=== PATIENT | male | born 1955 | race Caucasian/White ===

== ENCOUNTER → 2016-07-20 | Day surgery (SDC) | payer OTHER ==
--- NOTE | 2016-07-19 11:14 | MH ---
cc: Colt IGNACIO M.D. DATE OF ADMISSION: 07/20/2016 ADMISSION DIAGNOSIS Torn medial meniscus left knee now for arthroscopy left knee. ADMISSION HISTORY AND PHYSICAL This pleasant 61-year-old male is being admitted today for arthroscopy left knee due to a torn medial meniscus. PAST MEDICAL AND SURGICAL HISTORY Other past history: 1. The patient has a history of hypertension and for which he takes atenolol. 2. Sleep apnea. 3. He has previous surgery for partial right knee arthroplasty. REVIEW OF SYSTEMS Noncontributory. FAMILY HISTORY Noncontributory. SOCIAL HISTORY He does not smoke. Drinks occasionally. ALLERGIES NO KNOWN ALLERGIES. PHYSICAL EXAMINATION GENERAL: We find a 61-year-old male well-developed, well-nourished, alert and oriented times three, complaining of pain in his left knee. VITAL SIGNS: Blood pressure 116/72, pulse 73 and regular, respirations 16, temperature 98.2, pulse oximetry 93% on room air. HEENT: Eyes PERRL, EOMI. Ears, nose, mouth clear. NECK: Supple. LUNGS: Clear. HEART: Regular rate. ABDOMEN: Soft. Positive bowel sounds, nontender. EXTREMITIES: Reveal his left knee to be tender to palpation. He is neurovascularly intact to his toes. IMAGING MRI did reveal a torn medial meniscus. PLAN Admission for arthroscopy left knee today. The patient given prescription for postoperative pain control in the office. JMD BRUNO Lerma/KK /4:29 PM /11:03 AM
[~2016-07-20] VITALS: Ht 185.4 cm; Wt 107.3 kg
[~2016-07-20] MED LIST: *morphine SULFATE 8 MG/ML PERIprocedure ONLY ONE; ACETAMINOPHEN 1000 MG/100 ML VIAL IV ONE; APREPITANT 40 MG CAP ONE; ATEN50TA PO; BUPIVACAINE HCL PF 0.25% 30 ML VIAL ONE; CHLORHEXIDINE GLUCONATE 2 % 1 PACK (2 CLOTHS) TOPICAL PRN; CHLORHEXIDINE GLUCONATE 4% SOLN 120 ML BTL TOPICAL SCH; DO NOT ADM ANY ANTICOAGULANT DRUGS PRN; FAMOTIDINE 20 MG/2 ML VIAL ONE; INSULIN HUMAN REGULAR 1,000 UNITS/10 ML VIAL SQ PRN; LACTATED RINGER'S 1000 ML IV PRN; METOPROLOL TARTRATE 25 MG TAB PO PRN; MIDAZOLAM HCL 2 MG/2 ML VIAL ONE; ONDANSETRON HCL 4 MG/2 ML VIAL IV PUSH ONE; POVIDONE IODINE 5% (ANTISEPSIS KIT) 4 APPLICATIONS EACH NARE PRN; PROPOFOL 200 MG/20 ML AMP IV ONE; SODIUM CHLORID 0.9% 500 ML IV PRN; ceFAZolin 2 GM PREMIX 50 ML IV SCH; fentaNYL CITRATE 250 MCG/5 ML AMP ONE
[2016-07-20 06:38] VITALS: BP 121/72; PULSE 52; RESP 18; TEMP 97.5; O2SAT 98
[2016-07-20 07:01] LABS: AUTOMATED NEUTROPHIL # 5.1 TH/MM3 (1.8-7.7); BASOPHIL % 0.4 % (0.0-2.0); EOSINOPHIL # 0.2 TH/MM3 (0-0.4); EOSINOPHIL % 2.1 % (0.0-4.0); HEMATOCRIT 42.9 % (39.0-51.0); HEMO FLAGS DIFF FINAL; LYMPH % 24.3 % (9.0-44.0); MEAN CELL VOLUME 83.3 FL (80.0-100.0); MEAN CORPUSCULAR HEMOGLOBIN 27.8 PG (27.0-34.0); MEAN CORPUSCULAR HGB CONC 33.4 % (32.0-36.0); MONO % 10.9 % (0.0-8.0); NEUT % 62.3 % (16.0-70.0); PLATELET COUNT 140 TH/MM3 (150-450); RED BLOOD COUNT 5.15 MIL/MM3 (4.50-5.90); RED CELL DISTRIBUTION WIDTH 14.5 % (11.6-17.2); WHITE BLOOD COUNT 8.1 TH/MM3 (4.0-11.0)
[2016-07-20 07:10] LABS: APTT (PATIENT) 27.8 SEC (24.3-30.1)
[2016-07-20 07:16] LABS: ANION GAP 10 MEQ/L (5-15); AST (GOT) 17 U/L (15-37); BICARBONATE 26.2 MEQ/L (21.0-32.0); BLOOD UREA NITROGEN 20 MG/DL (7-18); CHLORIDE 106 MEQ/L (98-107); GLOMERULAR FILTRATION RATE 75 ML/MIN (>89); POTASSIUM 3.9 MEQ/L (3.5-5.1); SODIUM (NA) 142 MEQ/L (136-145)
[2016-07-20 07:19] LABS: ALKALINE PHOSPHATASE 43 U/L (45-117); ALT (GPT) 37 U/L (12-78); TOTAL BILIRUBIN ADULT 0.3 MG/DL (0.2-1.0)
[2016-07-20 07:29] LABS: BLOOD, URINE NEG (NEG); GLUCOSE,URINE NEG (NEG); HYALINE CAST, URINE 1 /lpf (RARE); KETONE, URINE NEG (NEG); MUCUS URINE FEW /lpf (OCC); NITRITE,URINE NEG (NEG); SQUAMOUS EPITHELIAL CELL URINE <1 /hpf (0-5); URINE COLOR YELLOW (YELLW/STRAW)
[2016-07-20 07:31] LABS: COMMENT (UR) CULT NOT INDICATED; CULTURE IF INDICATED CULT NOT INDICATED
[2016-07-20 10:30] VITALS: BP 110/70; PULSE 52; RESP 18; TEMP 97.6; O2SAT 100
--- NOTE | 2016-07-20 11:45 | MP ---
cc: Colt EMANUEL DATE OF SURGERY 07/20/2016 PREOPERATIVE DIAGNOSIS Internal derangement left knee. 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 SURGERY PERFORMED Arthroscopy, excision of torn medial meniscus and ArthroCare shaving chondroplasty of the weightbearing tibial surface and the underlying femoral surface as well for a grade [address] Emanuel ANESTHESIA LMA PROCEDURE The patient was brought to the operating room and placed on the operating room table in the supine position. After successful induction of general anesthesia, the patient's left leg was prepped and draped in the usual manner. The knee was then placed in a knee crawley and tightened. Arthroscopic examination was then performed by making a stab wound over the proximal superior and medial aspect of the patellofemoral joint for insertion of the inflow cannula and fluid, followed by stab wounds over the medial and lateral joint margins respectively for insertion of the arthroscope, shaver and probe. Arthroscopic examination was then performed which revealed an intact lateral compartment, intact anterior cruciate medial compartment, found have a large tear of the medial side of the medial meniscus which was shaved smooth using ArthroCare cutter, shaver and probe to afford a smooth surface. Grade 3 chondromalacia changes noted in the tibial surface at the weightbearing junction and mild chondromalacia of the femoral surface. These areas were shaved smooth using the ArthroCare system. The patellofemoral joint was found to have some chondromalacia as well grade 2 shaved smooth using the ArthroCare system. The rest of knee joint found to be intact. The wound irrigated copiously lactated Ringer's solution. Excess fluid removed. 10 cc of 0.25% Marcaine plain inserted in the knee joint. Skin approximated with interrupted 3-0 nylon suture. Wet and then dry dressing applied to the wound followed by Xeroform gauze, sterile dressing and thigh-high Earnest wrap. No tourniquet utilized. Estimated blood loss 10 cc. Sponge and suture counts correct. The patient tolerated the procedure well and left the operating room in satisfactory condition. MD BRUNO Rushing/BRIGITTE /8:56 AM /11:29 AM
--- NOTE | 2016-07-20 13:38 | EKG ---
Date Performed: 07/20/2016 Time Performed: 07:03:11 PTAGE: 61 years EKG: SINUS BRADYCARDIA BORDERLINE ECG Compared to prior tracing no significant change PREVIOUS TRACING : 01/06/2014 09.45 DOCTOR: Eddie Saldivar Interpretating Date/Time 07/20/2016 13:36:58
== END | disposition home or self-care (01) ==
LOC: HSDC 05:42
PROVIDERS: ATTEND Surgery
DX: S83.242A Other tear of medial meniscus, current injury, left knee, initial encounter (principal); M94.262 Chondromalacia, left knee; I10 Essential (primary) hypertension; G47.30 Sleep apnea, unspecified
CPT/HCPCS: 01400; 29881; 80053; 81001; 85025; 85610; 85730; 93005; J0131; J0690; J2250; J2270; J2405; J3010; J7120; J8501